=== PATIENT | male | born 1975 | race Caucasian/White ===

== ENCOUNTER 2018-04-23 14:50 | Emergency (ER) | payer OTHER ==
[~2018-04-23] VITALS: Ht 182.9 cm; Wt 90.7 kg
[~2018-04-23 14:50] MED LIST: PHENERGAN 25 MG25 M1 PO; VALIUM5 MG PO; XANAX 1 MG TABLE1 MG PO; [UNRECOGNIZED DRUG - OTHER]
[2018-04-23 16:19] LABS: AMP/METHAMP POSITIVE (Negative); BARBITURATES Negative (Negative); BENZODIAZEPINES Negative (Negative); COCAINE Negative (Negative); METHADONE Negative (Negative); OPIATES Negative (Negative); PCP Negative (Negative)
[2018-04-23 16:24] LABS: HEMATOCRIT 46.8 % (42.0-52.0); HEMOGLOBIN 16.3 gm/dL (14.0-18.0); MCH 29.2 pg (26.0-34.0); MCHC 34.7 g/dL (28.0-37.0); PLATELET COUNT 214 thou/uL (150-400); RBC 5.58 mil/uL (4.50-6.00); RDW 13.1 % (10.5-14.5); WBC 7.2 thou/uL (4.0-11.0)
[2018-04-23 16:33] LABS: ANION GAP 4 mmol/L (7-16); BUN 12 mg/dL (7-18); CALCIUM 9.4 mg/dL (8.5-10.1); CHLORIDE 101 mmol/L (98-107); CO2 33 mmol/L (21-32); GLUCOSE 79 mg/dL (74-106); POTASSIUM 4.1 mmol/L (3.5-5.1); SODIUM 138 mmol/L (136-145)
[2018-04-23 16:41] LABS: TROPONIN-I <0.06 ng/mL (<0.06)
[2018-04-23 19:12] VITALS: BP 126/74
--- NOTE | 2018-04-24 10:58 | EKG ---
[address] [place] [address] ELECTROCARDIOGRAM REPORT Name: ANASTASIIA EGAN Room #: DEP [facility] José#: [id number] ������������������ Admission: 04/23/18 ������������������ Attend Phys: Discharge: 04/23/18 ������������������ Date of : 79 Report #: [id number] ����������������������������������������������������������������� [id number] THIS REPORT FOR: //name// [facility] ED Test Date: 2018-04-23 Test Time: 15:42:50 Pat Name: ANASTASIIA EGAN Department: Room: Gender: M Senior Engineering Associate: KKODJOVI : 1975 Requested By: Nicholas Jane Order Number: [id number] MD: Catalino Puente Measurements Intervals [place] Rate: 100 P: 70 TN: 129 QRS: 74 QRSD: 105 T: -40 QT: 332 QTc: 429 Interpretive Statements Sinus tachycardia Nonspecific ST and T wave abnormality Compared to ECG 04/12/2011 14:31:17 nonspecific change in the ST and T-wave segments Electronically Signed On 04-24-2018 10:58:46 [facility] [employer] by Catalino Puente [email or web address] ��������������������������������������������� <ELECTRONICALLY SIGNED> ���������������������������������������� By: Catalino Puente MD, [facility] ��������������������������������������������� 04/24/18 [id number] Catalino Puente MD, [facility] /EPI
== END 2018-04-23 19:13 | disposition home or self-care (01) ==
LOC: ER 14:50
PROVIDERS: Emergency Medicine
DX: R60.0 Localized edema (principal); F15.10 Other stimulant abuse, uncomplicated